=== PATIENT | female | born 1995 | race African-American/Black ===

== ENCOUNTER 2017-01-08 12:42 | Emergency (ER) | payer MEDICAID, OTHER ==
[~2017-01-08] VITALS: Ht 157.5 cm; Wt 158.0 kg
[2017-01-08 13:15] LABS: BASOPHILS % 0.6 % (0.0-2.0); LYMPHOCYTES % 27.6 % (20.0-50.0); MEAN CORPUSCULAR HEMOGLOBIN 26.5 pg (28.0-32.0); MEAN CORPUSCULAR HGB CONC 32.6 g/dL (31.0-37.0); MEAN CORPUSCULAR VOLUME 81.2 fL (81.0-99.0); MEAN PLATELET VOLUME 8.2 fl (7.4-10.4); MONOCYTES % 6.1 % (2.0-8.0); NEUTROPHILS % 63.7 % (40.0-76.0); PLATELET 294 x1000/uL (130-400); RED BLOOD CELL COUNT 5.29 mill/uL (4.2-5.4); RED CELL DISTRIBUTION WIDTH 13.7 % (11.6-14.6); WHITE BLOOD COUNT 6.9 x1000/uL (4.5-11.0)
[2017-01-08] MEDS ORDERED: ONDANSETRON HCL 4MG/2ML VIAL IV ONE (13:15)
[2017-01-08] MEDS ORDERED: MORPHINE SULFATE 4 MG/ML CPJ (NOT FOR IM USE) IV ONE (13:15)
[2017-01-08 13:21] LABS: CHLORIDE 106 mEq/L (98-107); INDEX HEMOLYSI 1 (1-3); INDEX ICTERIC 1 (1-4); INDEX LIPEMIC 1 (1-3)
[2017-01-08 13:25] LABS: PROTHROMBIN TIME 10.7 sec
[2017-01-08 13:29] LABS: ALANINE AMINOTRANSFERASE 16 IU/L (13-61); ALBUMIN 3.5 g/dL (3.4-5.0); ANION GAP 13; CALCIUM 8.8 mg/dL (8.5-10.1); CARBON DIOXIDE 24 mEq/L (21-32); LIPASE 303 IU/L (73-393); UREA NITROGEN BLOOD 12 mg/dL (7-21)
[2017-01-08 13:31] LABS: eGFR > 60 mL/min (>60)
[2017-01-08 13:37] LABS: HCG SCREEN NEGATIVE
[2017-01-08] MEDS ORDERED: OXYCODONE HCL/ACETAMINOPHEN 5/325MG TABLET PO ONE (19:15)
[2017-01-08 19:44] VITALS: BP 137/90
== END 2017-01-08 19:49 | disposition home or self-care (01) ==
LOC: ER 13:00
DX: N83.201 Unspecified ovarian cyst, right side (principal); I10 Essential (primary) hypertension; F17.200 Nicotine dependence, unspecified, uncomplicated; F12.10 Cannabis abuse, uncomplicated; E66.01 Morbid (severe) obesity due to excess calories; Z68.44 Body mass index [BMI] 60.0-69.9, adult
CPT/HCPCS: 36415; 74176; 76705; 76830; 76856; 80053; 83690; 84703; 85025; 85610; 96374; 96375; 99285; J2270; J2405; Z7610

== ENCOUNTER 2017-02-01 14:40 | Emergency (ER) | payer OTHER ==
[~2017-02-01] VITALS: Ht 165.1 cm; Wt 150.0 kg
[2017-02-01 15:00] VITALS: BP 133/90
== END 2017-02-01 19:00 | disposition left against medical advice (07) ==
LOC: ER 14:40
DX: R10.9 Unspecified abdominal pain (principal); Z53.21 Procedure and treatment not carried out due to patient leaving prior to being seen by health care provider

== ENCOUNTER 2018-03-30 19:12 | Emergency (ER) | payer OTHER ==
[~2018-03-30] VITALS: Ht 160 cm; Wt 170.0 kg
[2018-03-30] MEDS ORDERED: IBUPROFEN 400MG TABLET PO ONE (20:15)
[2018-03-30] MEDS ORDERED: ACETAMINOPHEN 500MG TABLET PO ONE (20:15)
[2018-03-30 22:44] VITALS: BP 128/70
== END 2018-03-30 22:57 | disposition home or self-care (01) ==
LOC: ER 20:22
DX: S69.91XA Unspecified injury of right wrist, hand and finger(s), initial encounter (principal); F17.200 Nicotine dependence, unspecified, uncomplicated; I10 Essential (primary) hypertension; E66.9 Obesity, unspecified; Z68.44 Body mass index [BMI] 60.0-69.9, adult; V43.53XA Car driver injured in collision with pick-up truck in traffic accident, initial encounter; Y93.89 Activity, other specified; Y92.488 Other paved roadways as the place of occurrence of the external cause
CPT/HCPCS: 70450; 71045; 72125; 72131; 72170; 73080; 73110; 81025; 99284

== ENCOUNTER 2021-01-16 21:04 | Emergency (ER) | payer MEDICAID, OTHER ==
[~2021-01-16] VITALS: Ht 160 cm; Wt 161.0 kg
[2021-01-16 22:12] LABS: CLARITY URINE CLOUDY (CLEAR); COLOR URINE YELLOW (YELLOW); KETONES URINE NEGATIVE (NEGATIVE); LEUKOCYTE ESTERASE URINE 2+ (NEGATIVE); NITRITE URINE NEGATIVE (NEGATIVE); OCCULT BLOOD URINE NEGATIVE (NEGATIVE); PH URINE 6.5 (4.5-8.0); PROTEIN URINE NEGATIVE (NEGATIVE); SPECIFIC GRAVITY URINE 1.027 (1.005-1.030); UROBILINOGEN URINE 0.2 E.U./dL (0.2-1.0)
[2021-01-16] MEDS ORDERED: IBUPROFEN 600MG TABLET PO ONE (22:15)
[2021-01-16] MEDS ORDERED: AMOX-494 MT (23:05)
[2021-01-16] MEDS ORDERED: DIF15 MT (23:05)
[2021-01-16 23:32] VITALS: BP 152/88
== END 2021-01-16 23:44 | disposition home or self-care (01) ==
LOC: ER 21:04
DX: N30.90 Cystitis, unspecified without hematuria (principal); I10 Essential (primary) hypertension; Z79.899 Other long term (current) drug therapy
CPT/HCPCS: 81003; 81025; 93005; 99284

== ENCOUNTER 2021-02-10 10:28 | Emergency (ER) | payer MEDICAID ==
[~2021-02-10] VITALS: Ht 160 cm; Wt 158.0 kg
[~2021-02-10 10:28] MED LIST: AMOX-494 MT; DIF15 MT
[2021-02-10 10:32] VITALS: BP 146/95
[2021-02-10] MEDS ORDERED: PENI500T MT (10:57)
[2021-02-10] MEDS ORDERED: TOPUD PO (10:57)
== END 2021-02-10 11:10 | disposition home or self-care (01) ==
LOC: ER 10:28
DX: J02.9 Acute pharyngitis, unspecified (principal)
CPT/HCPCS: 99281; 99283

== ENCOUNTER 2021-02-18 15:24 | Emergency (ER) | payer MEDICAID ==
[~2021-02-18] VITALS: Ht 165.1 cm; Wt 115.0 kg
[~2021-02-18 15:24] MED LIST changes: +PENI500T MT; +TOPUD PO
[2021-02-18] MEDS ORDERED: ACETAMINOPHEN 325MG TABLET PO ONE (16:00)
[2021-02-18] MEDS ORDERED: LIDOCAINE HCL/EPINEPHRINE 1%-EPI 1:100,000 20 ML VIAL INFIL ONE (16:00)
[2021-02-18] MEDS ORDERED: TETANUS, DIPHTHERIA, PERTUSSIS VAC/PF 0.5ML (>7YR OLD) IM ONE (16:00)
[2021-02-18 18:24] VITALS: BP 129/71
== END 2021-02-18 20:20 | disposition home or self-care (01) ==
LOC: ER 15:24
DX: S02.2XXA Fracture of nasal bones, initial encounter for closed fracture (principal); W18.39XA Other fall on same level, initial encounter; Y93.89 Activity, other specified; Y92.89 Other specified places as the place of occurrence of the external cause; Y99.8 Other external cause status
CPT/HCPCS: 70450; 70486; 90471; 90715; 99285; J3490; Z7610

== ENCOUNTER 2021-12-31 23:59 | Emergency (ER) | payer BC, OTHER ==
[~2021-12-31] VITALS: Ht 160 cm; Wt 159.0 kg
[2022-01-01] MEDS ORDERED: KETOROLAC 30MG/ML VIAL IV STA
[2022-01-01] MEDS ORDERED: ONDANSETRON HCL 4MG/2ML INJ IV STA
[2022-01-01 07:17] LABS: BASOPHILS % 0.8 % (0.0-2.0); EOSINOPHILS % 0.6 % (0.0-5.0); HEMATOCRIT. 43.2 % (36.0-48.0); HEMOGLOBIN. 14.3 g/dL (12.0-16.0); LYMPHOCYTES % 18.6 % (20.0-50.0); MEAN CORPUSCULAR HEMOGLOBIN 27.2 pg (28.0-32.0); MEAN PLATELET VOLUME 7.8 fl (7.4-10.4); MONOCYTES % 5.1 % (2.0-8.0); NEUTROPHILS % 74.9 % (40.0-76.0); PLATELET 375 x1000/uL (130-400); RED BLOOD CELL COUNT 5.26 mill/uL (4.2-5.4); RED CELL DISTRIBUTION WIDTH 14.1 % (11.6-14.6)
[2022-01-01 07:23] LABS: CHLORIDE 107 mEq/L (98-107)
[2022-01-01 07:27] LABS: ETHANOL BLOOD < 10 mg/dL
[2022-01-01] MEDS ORDERED: MORPHINE SULFATE 4 MG/ML CPJ (NOT FOR IM USE) IV ONE (07:30)
[2022-01-01 07:31] LABS: HCG SCREEN NEGATIVE
[2022-01-01] MEDS ORDERED: KETOROLAC 30MG/ML VIAL IV SCH (07:40)
[2022-01-01 07:42] LABS: CLARITY URINE CLOUDY (CLEAR); COLOR URINE YELLOW (YELLOW); KETONES URINE NEGATIVE (NEGATIVE); LEUKOCYTE ESTERASE URINE 2+ (NEGATIVE); NITRITE URINE NEGATIVE (NEGATIVE); OCCULT BLOOD URINE NEGATIVE (NEGATIVE); PROTEIN URINE TRACE (NEGATIVE); SPECIFIC GRAVITY URINE 1.026 (1.005-1.030); UROBILINOGEN URINE 0.2 E.U./dL (0.2-1.0)
[2022-01-01] MEDS ORDERED: MORPHINE SULFATE 4 MG/ML CPJ (NOT FOR IM USE) IV SCH (07:45)
[2022-01-01] MEDS ORDERED: ONDANSETRON HCL 4MG/2ML INJ IV SCH (07:45)
[2022-01-01] MEDS ORDERED: SODIUM CHLORIDE 0.9% 1,000 ML IV ONE ×2 (08:15)
[2022-01-01] MEDS ORDERED: IOHEXOL-300 100 ML BOTTLE ONE (09:07)
[2022-01-01 16:30] VITALS: BP 142/61
== END 2022-01-01 16:45 | disposition left against medical advice (07) ==
LOC: ER 23:59 → CANBEDREQ 01-01 23:49
DX: K85.90 Acute pancreatitis without necrosis or infection, unspecified (principal); I49.9 Cardiac arrhythmia, unspecified; Z90.49 Acquired absence of other specified parts of digestive tract; Z20.822 Contact with and (suspected) exposure to COVID-19
CPT/HCPCS: 36415; 71045; 74177; 76705; 80053; 80320; 81003; 81025; 82962; 83690; 84703; 85025; 87086; 87426; 93005; 96361; 96374; 96375; 99285; J1885; J2405; J7030; Q9967; G0480

== ENCOUNTER 2024-02-02 23:42 | Emergency (ER) | payer BC, OTHER ==
[~2024-02-02] VITALS: Ht 160 cm; Wt 158.7 kg
[2024-02-03 00:26] VITALS: RESP 14; O2SAT 100
[2024-02-03 00:27] VITALS: BP 158/94; PULSE 92
[2024-02-03 02:44] VITALS: TEMP 98
[2024-02-03] MEDS: ACETAMINOPHEN 325MG TABLET PO ONE (02:44)
[2024-02-03] MEDS: BACITRACIN ZINC OINT UDPKT TOP ONE (03:21)
[2024-02-03] MEDS: LIDOCAINE HCL/PF 1% 10 MG/ML 5ML VIAL INFIL ONE (03:21)
[2024-02-03] MEDS ORDERED: ACET-2708 PO (03:38)
== END 2024-02-03 03:52 | disposition home or self-care (01) ==
LOC: ER 02-03 00:20
DX: S01.511A Laceration without foreign body of lip, initial encounter (principal); W01.0XXA Fall on same level from slipping, tripping and stumbling without subsequent striking against object, initial encounter; Y93.89 Activity, other specified; Y92.89 Other specified places as the place of occurrence of the external cause; Y99.8 Other external cause status
CPT/HCPCS: 99282; 12011; J3490

== ENCOUNTER 2024-02-09 05:26 | Emergency (ER) | payer OTHER ==
[~2024-02-09] VITALS: Ht 160 cm; Wt 158.7 kg
[~2024-02-09 05:26] MED LIST changes: +ACET-2708 PO
[2024-02-09 05:31] VITALS: BP 134/66; TEMP 97.6; O2SAT 98
[2024-02-09 05:33] VITALS: PULSE 106; RESP 16
== END 2024-02-09 06:40 | disposition left against medical advice (07) ==
LOC: ER 06:10
DX: Z48.02 Encounter for removal of sutures (principal); Z53.21 Procedure and treatment not carried out due to patient leaving prior to being seen by health care provider

== ENCOUNTER 2024-03-23 02:10 | Emergency (ER) | payer OTHER ==
[~2024-03-23] VITALS: Ht 167.6 cm; Wt 137.0 kg
[2024-03-23 02:24] VITALS: O2SAT 99
[2024-03-23 03:16] LABS: BASOPHILS % 0.9 % (0.0-2.0); EOSINOPHILS % 3.1 % (0.0-5.0); HEMATOCRIT. 38.9 % (36.0-48.0); HEMOGLOBIN. 12.9 g/dL (12.0-16.0); LYMPHOCYTES % 28.6 % (20.0-50.0); MEAN CORPUSCULAR HEMOGLOBIN 27.6 pg (28.0-32.0); MEAN CORPUSCULAR HGB CONC 33.2 g/dL (31.0-37.0); MEAN CORPUSCULAR VOLUME 83.1 fL (81.0-99.0); MEAN PLATELET VOLUME 7.6 fl (7.4-10.4); MONOCYTES % 5.8 % (2.0-8.0); NEUTROPHILS % 61.6 % (40.0-76.0); PLATELET 323 x1000/uL (130-400); RED BLOOD CELL COUNT 4.68 mill/uL (4.2-5.4); RED CELL DISTRIBUTION WIDTH 14.2 % (11.6-14.6); WHITE BLOOD COUNT 9.9 x1000/uL (4.5-11.0)
[2024-03-23 03:22] LABS: CHLORIDE 105 mEq/L (98-107); POTASSIUM 3.8 mEq/L (3.5-5.1); SODIUM 140 mEq/L (136-145)
[2024-03-23 03:23] LABS: CALCIUM 8.6 mg/dL (8.7-10.4); CARBON DIOXIDE 26 mEq/L (21-32)
[2024-03-23 03:25] LABS: HCG SCREEN NEGATIVE
[2024-03-23 03:28] LABS: CREATININE 0.8 mg/dL (0.6-1.0); ETHANOL BLOOD < 10 mg/dL (<10); GLUCOSE 86 mg/dL (70-105); UREA NITROGEN BLOOD 17 mg/dL (9-23)
[2024-03-23 03:30] LABS: ACETAMINOPHEN < 2 ug/mL (10-30)
[2024-03-23 03:31] LABS: INR 0.9; PROTHROMBIN TIME 10.5 sec (9.6-11.0)
[2024-03-23] MEDS: SODIUM CHLORIDE 0.9% 1,000 ML IV ONE (03:48)
[2024-03-23] MEDS: MORPHINE SULFATE 4 MG/ML INJ (FOR IV/IM USE) IV STA (04:03)
[2024-03-23] MEDS: ONDANSETRON HCL 4MG/2ML INJ IV STA (04:03)
[2024-03-23] MEDS: FAMOTIDINE 20MG/2ML VIAL IV ONE (04:04)
[2024-03-23 05:35] LABS: ALANINE AMINOTRANSFERASE 15 IU/L (10-49); ALBUMIN 3.9 g/dL (3.2-4.8); ASPARTATE AMINOTRANSFERASE 15 IU/L (<34); BILIRUBIN TOTAL 0.3 mg/dL (0.1-1.0); PROTEIN TOTAL 6.3 g/dL (6.0-8.3)
[2024-03-23 05:38] LABS: BILIRUBIN DIRECT < 0.1 mg/dL (<=3.0)
[2024-03-23 14:32] LABS: CLARITY URINE CLOUDY (CLEAR); COLOR URINE DARK YELLOW (YELLOW); GLUCOSE URINE NEGATIVE (NEGATIVE); KETONES URINE TRACE (NEGATIVE); LEUKOCYTE ESTERASE URINE TRACE (NEGATIVE); NITRITE URINE NEGATIVE (NEGATIVE); OCCULT BLOOD URINE 3+ (NEGATIVE); PH URINE 5.5 (4.5-8.0); PROTEIN URINE 1+ (NEGATIVE); SPECIFIC GRAVITY URINE 1.039 (1.005-1.030)
[2024-03-23 14:45] LABS: *AMPHETAMINES SCREEN URINE PRESUMPTIVE POSITIVE (NEGATIVE); *BARBITURATES SCREEN URINE NEGATIVE (NEGATIVE); *COCAINE SCREEN URINE NEGATIVE (NEGATIVE); METHADONE URINE SCREEN NEGATIVE (NEGATIVE); OPIATES URINE SCREEN PRESUMPTIVE POSITIVE (NEGATIVE)
[2024-03-23 14:46] LABS: ECSTASY MDMA SCREEN URINE CONF.TEST INDICATED (NEGATIVE); MUCUS URINE TRACE /lpf (< = 2+); PHENCYCLIDINE URINE SCREEN NEGATIVE (NEGATIVE); SQUAMOUS EPITHELIAL CELL URINE 2+ /lpf (RARE/1+)
[2024-03-23 14:47] LABS: BACTERIA URINE 1+; RBC URINE 50-100 /hpf (0-2)
[2024-03-23] MEDS: NITROFURANTOIN 100MG M/M CAPSULE PO STA (20:39)
[2024-03-24] MEDS: PHENAZOPYRIDINE HCL 100MG TABLET PO ONE (18:00)
[2024-03-24 21:13] VITALS: BP 124/79; PULSE 68; RESP 16; TEMP 98.3
== END 2024-03-24 23:35 | disposition still patient (30) ==
LOC: ER 02:17
DX: T14.91XA Suicide attempt, initial encounter (principal); R11.0 Nausea; R19.7 Diarrhea, unspecified; F41.9 Anxiety disorder, unspecified; F32.9 Major depressive disorder, single episode, unspecified; F17.210 Nicotine dependence, cigarettes, uncomplicated; R41.82 Altered mental status, unspecified; Z20.822 Contact with and (suspected) exposure to COVID-19; X58.XXXA Exposure to other specified factors, initial encounter
CPT/HCPCS: 80076; 80305; 80048; 81003; 80307; 80329; 80320; 84703; 83690; 85025; 85610; 36415; 71045; 70450; 93005; 96361; 96374; 96375; 99291; 87426; J3490; J2405; J2270; J7030; Z7610 ×4; G0480